=== PATIENT | female | born 1955 | race Caucasian/White ===

== ENCOUNTER 2023-03-19 17:30 | Emergency (ER) | payer MEDICARE, SELFPAY ==
--- OUTSIDE RECORDS SUMMARY | 2023-03-19 17:32 | XMS_ITS | Continuity of Care Document ---
Author Name Unknown Organization [facility] Address [address] [address] [place] [address] Phone Care Team Providers Care Cyber Systems Engineer Name Role Phone Lizy Salomon CRNA Unavailable Unavailable Allergies, Adverse Reactions, Alerts Substance Reaction Status Criticality bacitracin swollen red sores Active No Informa tion Medications Medication Instructions Dosage Effective Dates (start - stop) Status Comments metformin 500 mg tablet take 1 tablet by oral route 2 times every day with morning and evening meals 500 MG - Active lisinopril 10 mg tablet take 1 tablet by oral route every day 10 MG - Active escitalopram 10 mg tablet take 1 tablet by oral route every day 10 MG - Active bupropion HCl SR 150 mg tablet,12 hr sustained-release take 1 tablet by oral route every day 150 MG - Active loratadine 10 mg tablet take 1 tablet by oral route every day 10 MG - Active indapamide 2.5 mg tablet take 1 tablet by oral route every day in the morning 2.5 MG - Active atorvastatin 10 mg tablet take 1 tablet by oral route every day 10 MG - Active trazodone 150 mg tablet take 1 Tablet by oral route every day at bedtime 150 MG - Active Aspir-81 81 mg tablet,delayed release take 1 tablet by oral route every day - Active Benadryl Allergy 25 mg tablet take 2 Tablet by oral route every day as needed 50 MG - Active Procedures Procedure Date Colonoscopy Flex; W/remov Les- Level Iv-surg Path Gross/micro 20 Colonoscopy Flex; W/bx 1/mx Level Iv-surg Path Gross/micro Advance Directives Directive Yes / No Effective Date File Name No Information Encounters Encounter Description Practice Location Reason(s) For Visit Diagnoses Date Provider Providers Copied on Encounter [facility], [address] [address], [place], [place], [address], [place] tel:[phone] [facility] No Information 0 Aime Medel. [address] [facility] [address] [facility] [address], [place], [place], [address] , [place]. tel: [phone] Referring Provider: Agueda Caballero, [address], [place], [address] . tel:[phone] [facility], [address] [address], [place], [place], [address], [place] tel:[phone] [facility] Personal history of colonic polypsColorectal polyp detected on colonoscopyDivertic ulosis of colon without diverticulitisEncou nter for screening for malignant neoplasm of colonBenign neoplasm of ascending colonDvrtclos of lg int w/o perforation or abscess w/o bleedingBenign neoplasm of ascending colonPersonal history of colonic polyps 0 Nan Romeo . [address], [place], [place], [address] , [place]. tel: [phone] Referring Provider: Referral Self. [facility], [address] [address], [place], [place], [address], [place] tel:[phone] [facility] No Information 0 Nan Romeo . [address], [place], [place], [address] , [place]. tel: [phone] [facility], [address] [address], [place], [place], [address], [place] tel:[phone] [facility] Benign colon polypDiverticulosis of colon without hemorrhageExternal hemorrhoidsEncounte r for screening for malignant neoplasm of colonBenign neoplasm of transverse colonDvrtclos of lg int w/o perforation or abscess w/o bleedingPolyp of colon Sep-2 7-201 7 Kandiel MD Ahmed. [address] [facility], [place], [place], [address] , [place]. tel:[phone] Referring Provider: Referral Self. Family History Family Member Type Diagnosis Age At Onset Mother Problem (finding) Father Problem (finding) Alive and well Son Problem (finding) Brother Problem (finding) Alive and well Son Problem (finding) Alive and well Daughter Problem (finding) Alive and well Immunizations Vaccine Date Status Comments Influenza administered Note: [facility] bi-d irectional interface ; Source: Other Registry Pneumovax 23 administered Note: [facility] bi-d irectional interface ; Source: Other Registry Influenza administered Note: [facility] bi-d irectional interface ; Source: Other Registry Influenza administered Note: [facility] bi-d irectional interface ; Source: Other Registry zoster vaccine, live administered Note: [facility] bi-directional interface ; Source: Other Registry Influenza administered Note: [facility] bi-d irectional interface ; Source: Other Registry Pneumovax 23 administered Note: [facility] bi-d irectional interface ; Source: Other Registry Influenza administered Note: [facility] bi-d irectional interface ; Source: Other Registry Influenza administered Note: [facility] bi-d irectional interface ; Source: Other Registry tetanus toxoid, reduced diphtheria toxoid, and acellular pertussis vaccine, adsorbed administered Note: [facility] b i-directional interface ; Source: Other Registry Novel [id number], injectable administered Note: [facility] bi-direct ional interface ; Source: Other Registry Influenza, seasonal, injecta ble, preservative free administered Note: [facility] bi-direct ional interface ; Source: Other Registry Influenza, seasonal, injectable administe red Note: [facility] bi- directional interface ; Source: Other Registry Influenza, seasonal, injectable administe red Note: [facility] bi- directional interface ; Source: Other Registry tetanus and diphtheria toxoi ds, adsorbed, preservative free, for adult use (5 Lf of tetanus toxoid and 2 Lf of diphtheria toxoid) administered Note: [facility] bi-direct ional interface ; Source: Other Registry Payers Payer name Insurance type Covered constitution party ID Authorsilvio rosenthal(s) Blue [employer] Medicare Advantage [id number] Social History Type Description Quantity Date Captured Comments Sex Female Smoking Status No Information Chief Complaint And Reason For Visit No Information Reason For Referral Reason For Referral No Information History Of Present Illness Encounter Date Complaint History Of Prese nt Illness No Information Functional Status Date Functional Assessmen t No Information Instructions Date Instruction Additional Infor mation Colon Cancer Prevention Related to Colorectal polyp detected on colonoscopy High Fiber Diet Related to Color ectal polyp detected on colonoscopy Diverticulosis/Diverticulitis Re lated to Colorectal polyp detected on colonoscopy Colon Polyps Related to Color ectal polyp detected on colonoscopy Diverticulosis/Diverticulitis Re lated to Benign colon polyp Colon Polyps Related to Benig n colon polyp Colon Cancer Prevention Related to Benign colon polyp High Fiber Diet Related to Benig n colon polyp Assessments Type Assessment Date No Information Patient Care Teams Name Effective Dates (start - stop) Status Members No Information
[2023-03-19 17:37] VITALS: BP 117/77; PULSE 83; RESP 20; TEMP 36.7; O2SAT 99; BMI 36.0
--- OUTSIDE RECORDS SUMMARY | 2023-03-19 20:29 | XMS_ITS | Continuity of Care Document ---
Author Name Unknown Organization [facility] Address [address] [address] [place] [address] Phone Care Team Providers Care Personnel Manager Name Role Phone Lizy Salomon CRNA Unavailable [...] Diagnoses Date Provider Providers Copied on Encounter [facility], [address] [address], [place], [place], [address], [place] tel:[phone] [facility] No Information 0 Aime Medel. [address] [facility] [address], [place], [place], [address] , [place]. tel: [phone] Referring Provider: Agueda Caballero, [address] [facility] [address], [place], [address] . tel:[phone] [facility], [address] [address], [place], [place], [address], [place] tel:[phone] [facility] Personal history of colonic polypsColorectal polyp detected on colonoscopyDivertic ulosis of colon without diverticulitisEncou nter for screening for malignant neoplasm of colonBenign neoplasm of ascending colonDvrtclos of lg int w/o perforation or abscess w/o bleedingBenign neoplasm of ascending colonPersonal history of colonic polyps 0 Nan Romeo . [address] [facility] [address], [place], [place], [address] , [place]. tel: [phone] Referring Provider: Referral Self. [facility], [address] [address], [place], [place], [address], [place] tel:[phone] [facility] No Information 0 Nan Romeo . [address] [facility] [address], [place], [place], [address] , [place]. tel: [phone] [facility], [address] [address], [place], [place], [address], [place] tel:[phone] [facility] Benign colon polypDiverticulosis of colon without hemorrhageExternal hemorrhoidsEncounte r for screening for malignant neoplasm of colonBenign neoplasm of transverse colonDvrtclos of lg int w/o perforation or abscess w/o bleedingPolyp of colon Sep-2 7-201 7 Kandiel MD Ahmed. [address] [facility], [place], [place], [address] , [place]. tel:[phone] Referring Provider: Referral Self. Family History Family [...] i-directional interface ; Source: Other Registry Novel [id number], injectable administered Note: [facility] bi-direct ional interface [...] ID Authorsilvio rosenthal(s) [employer] Medicare Advantage [id number] Social History Type Description Quantity Date [...]
--- OUTSIDE RECORDS SUMMARY | 2023-03-19 20:29 | XMS_ITS | Patient Health Record ---
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 Role Phone Barrera Roberts Primary Care Provider UnavailElvin Sim Unavailable [phone] Kristyn SEGURA [facility] Unavailable Unavailable Barrera Villagomez Unavailable [phone] Colby Moss Unavailable [phone] Zeyad Banegas Unavailable [phone] ALLERGIES Allergen (clinical drug ingredient) Drug/Non Drug Allergy documented on EMR Reaction Allergy Type Onset Date Status Neosporin rash Drug Allergy Active bacitracin Bacitracin rash Drug Allergy Activ e REASON FOR REFERRAL Reason 1st RYAN C2-C4 MBBs Diagnosis 1 Spondylosis without myelopathy or radiculopathy, cervical region (M47.812) Referral Organization [facility] Referring Provider First Name Elvin Referring Provider Last Name Dominick Referring Provider Speciality Pain Medic ine Referred Organization [facility] Referred Provider Elvin Tan Referred Address [address] [place] [address] [address],[place], [place],[address], Referred Provider Specialty Pain Medicin e Referral Priority Routine Reason RYAN C4-C5 TFE Diagnosis 1 Spondylosis without myelopathy or radiculopathy, cervical region (M47.812) Referral Organization [facility] Referring Provider First Name Elvin Referring Provider Last Name Dominick Referring Provider Speciality Pain Medic ine Referred Organization [facility] Referred Provider Elvin Tan Referred Address [address] [place] [address] [address],[place], [place],[address],[place] Referred Provider Specialty Pain Medicin e Referral Priority Routine MEDICATIONS Medication SIG (Take, Route, Fr equency, Duration) Notes Start Date End Date Status DULoxetine HCl 60 MG 1 capsule Orally On ce a day for 30 days Active Jardiance 25 MG 1 tablet Orally Once a day Active Pregabalin 150 MG 1 capsule Orally Twi ce a day for 30 days 02/21/2023 Active tiZANidine HCl 4 MG 1 tablet as needed O rally at bedtime for 30 days Active Aspirin 81 81 MG 1 tablet Orally Once a day Active traZODone HCl 50 MG 3 tablets Orally Once a day Active SOCIAL HISTORY Tobacco Use: Social History Observation Description Date Details (start date - stop date) Never Smoker NA - NA Sex Assigned At : Social History Observation Description Sex Assigned At Unknown Tobacco Use/Smoking: Question Answer Notes Are you a nonsmoker Alcohol Screen Question Answer Notes Did you have a drink containing alcohol in the p ast year? No Points 0 Interpretation Negative PROBLEMS Problem Type ICD Code Onset Dates Problem Status W/U Status Risk SNOMED Code Notes Problem Other chronic pain (G89.29) Active confirmed Chronic pain (48937756) Problem Spondylosis without myelopathy or radiculopathy, cervical region (M47.812) Active confirmed Cervical spondylosis without myelopathy (413587893) Problem Cervicalgia (M54.2) Active confirmed Cervicalgia (42819858) Problem Occipital neuralgia (M54.81) Active confirmed Occipital neuralgia (36667018) Problem Cervical radiculopathy (M54.12) Active confirmed Cervical radiculopathy (23448235) VITAL SIGNS Blood pressure diastolic 72 mm Hg 02/21/2023 Height 67 in 02/21/2023 Blood pressure systolic 120 mm Hg 02/21/2023 Weight 190 lbs 02/21/2023 BMI 29.75 kg/m2 02/21/2023 PROCEDURES Procedure Date Ordered Date Performed Result Body Sit e Intervention: 12/13/2022 12/16/2022 sched 12/27 Intervention: 12/29/2022 01/05/2023 sched 01/26 Intervention: 02/21/2023 03/03/2023 sched 03/14 Encounters Encounter Location Date Provider Diagnosis [facility] [address] [place] [address] [address] [place] [id number] 11/08/2022 Barrera Villagomez [facility] [address] [place] [address] [address] [place] [id number] 12/26/2022 Elvin Tan [address] [facility] [address] [facility] [address] [place] [phone] 01/02/2023 Elvin Tan [facility] [address] [place] [id number] 01/25/2023 Elvin Tan [facility] [address] [place] [id number] 01/31/2023 Elvin Tan [facility] [address] [place] [id number] 02/07/2023 Colby Bolick Other chronic pain G89.29 [facility] [address] [place] [address] [address] [place] [id number] 02/24/2023 Elvin Tan [facility] [address] [place] [id number] 03/13/2023 Elvin Tan [facility] [address] [place] [address] [address] [place] [id number] 03/14/2023 Elvin Tan [address] [facility] [address] [place] [id number] 11/22/2022 Elvin Tan Other chronic pain G89.29 and Cervicalgia M54.2 [address] [facility] [address] [place] [address] 12/13/2022 Colby Bolick Cervicalgia M54.2 ; Spondylosis without myelopathy or radiculopathy, cervical region M47.812 and Other chronic pain G89.29 [address] [facility] [address] [place] [id number] 01/10/2023 Colby Bolick [address] [facility] [address] [place] [id number] 01/25/2023 Colby Bolick Spondylosis without myelopathy or radiculopathy, cervical region M47.812 ; Cervicalgia M54.2 ; Other chronic pain G89.29 and Occipital neuralgia M54.81 [address] [facility] [address] [place] [id number] 02/21/2023 Colby Bolick Spondylosis without myelopathy or radiculopathy, cervical region M47.812 ; Cervicalgia M54.2 ; Occipital neuralgia M54.81 and Other chronic pain G89.29 [address] [facility] [address] [place] [id number] 12/29/2022 Zeyad Banegas Spondylosis without myelopathy or radiculopathy, cervical region M47.812 ; Cervicalgia M54.2 ; Other chronic pain G89.29 and Occipital neuralgia M54.81 [address] [facility] [address] [place] [id number] 02/02/2023 Elvin Tan Occipital neuralgia M54.81 [address] [facility] [address] [place] [id number] 03/14/2023 Elvin Tan Cervical radiculopathy M54.12 [address] [facility] [address] [place] [id number] 01/26/2023 Elvin Tan [address] [facility] [address] [place] [id number] 12/27/2022 Elvin Tan Spondylosis without myelopathy or radiculopathy, cervical region M47.812 ASSESSMENTS Encounter Date Diagnosis Assessment Notes Treatment Notes Treatment Clinical Notes 12/13/2022 Spondylosis without myelopathy or radiculopathy, cervical region (ICD-10 - M47.812) 12/13/2022 Cervicalgia (ICD-10 - M54.2) 01/25/2023 Spondylosis without myelopathy or radiculopathy, cervical region (ICD-10 - M47.812) 02/02/2023 Occipital neuralgia (ICD-10 - M54.81) 02/07/2023 Other chronic pain (ICD-10 - G89.29) 02/21/2023 Spondylosis without myelopathy or radiculopathy, cervical region (ICD-10 - M47.812) 02/21/2023 Cervicalgia (ICD-10 - M54.2) 03/14/2023 Cervical radiculopathy (ICD-10 - M54.12) 12/29/2022 Spondylosis without myelopathy or radiculopathy, cervical region (ICD-10 - M47.812) 12/27/2022 Spondylosis without myelopathy or radiculopathy, cervical region (ICD-10 - M47.812) 11/22/2022 Other chronic pain (ICD-10 - G89.29) Larissa presents to the clinic for an evaluation regarding her chronic neck, back, bilateral upper extremity, and bilateral lower extremity pain. I have reviewed her symptoms and current medications. I checked the [facility] database and I did not find any inconsistencies. She signed ROIs to [facility], and Jorge L to obtain her previous surgical notes, imaging, and visit notes. I will consider physical therapy or injections pending review of her outside records. I will continue with a treatment plan consisting of conservative therapy. Regarding medications, I have increased her Lyrica to 150mg BID for additional neuropathic pain relief. This treatment plan was reviewed with Larissa, and she was agreeable. I have started her on tizanidine 4mg QHS for overnight pain relief. She will return in 2-3 weeks for further evaluation or sooner if needed. I will continue to monitor her progress, adjusting her treatment plan as necessary. Discharge instructions reviewed verbally. Discussed the risks/benefits of prescribed medication. The patient was instructed to return to the office as scheduled and call with any questions, problems or concerns. 11/22/2022 Cervicalgia (ICD-10 - M54.2) 12/13/2022 Other chronic pain (ICD-10 - G89.29) Larissa presents to the clinic for an evaluation regarding her chronic neck, back, bilateral upper extremity, and bilateral lower extremity pain. I have reviewed her symptoms and current medications as well as her available imaging. I checked the [facility] database and I did not find any inconsistencies. I will continue with a treatment plan consisting of conservative therapy. I believe she is a good candidate for a bilateral C2-4 MBB/RFA work up. This procedure was explained to Larissa and she expressed interest in proceeding. Regarding medications, I will start her on Duloxetine as recommended by her primary provider. I will also refill her Lyrica and Tizanidine as these continue to provide moderate relief without side effects. This treatment plan was reviewed with Larissa and she was agreeable. She will return in 1 month for further evaluation or sooner if needed. I will continue to monitor her progress, adjusting her treatment plan as necessary. Plan:1. Reviewed available imaging2. Order bilateral C2-4 MBBs3. Start Duloxetine 30mg QD4. Refill Lyrica 150mg BID5. Refill Tizanidine 4mg QHS6. Follow up in 1 month Discharge instructions reviewed verbally. Discussed the risks/benefits of prescribed medication. The patient was instructed to return to the office as scheduled and call with any questions, problems or concerns. 12/29/2022 Cervicalgia (ICD-10 - M54.2) 02/21/2023 Occipital neuralgia (ICD-10 - M54.81) 01/25/2023 Cervicalgia (ICD-10 - M54.2) 01/25/2023 Other chronic pain (ICD-10 - G89.29) 02/21/2023 Other chronic pain (ICD-10 - G89.29) Larissa returns to clinic today for a follow up evaluation regarding her chronic neck, back, bilateral upper extremity, and bilateral lower extremity pain. I have reviewed the [facility] database and did not find any inconsistencies. I reviewed her symptoms and current medications. I will continue with a treatment plan consisting of conservative therapy at this time. Regarding medications, I will refill her Lyrica and Duloxetine as they continue to provide moderate relief without side effects. I will consider medical cannabis as a potential future treatment option. I have provided her with a MMCP info packet and she will take it home for consideration. For further treatment, I believe she is a good candidate for a C4-5 SUZI (level to be confirmed on day of procedure). This procedure was explained to her and she expressed hesitant interest in proceeding. This treatment plan was reviewed with Larissa, and she was agreeable. I will continue to monitor her progress and she will follow up as needed Plan:1. Refill Lyrica and Duloxetine2. Consider MMCP, provided info packet3. Order C4-5 SUZI, level to be confirmed on day of procedure4. Follow up as needed Discharge instructions reviewed verbally. Discussed the risks/benefits of prescribed medication. The patient was instructed to return to the office as scheduled and call with any questions, problems or concerns. 12/29/2022 Other chronic pain (ICD-10 - G89.29) Larissa presents to the clinic for an evaluation regarding her chronic neck, back, bilateral upper extremity, and bilateral lower extremity pain. I have reviewed her symptoms and current medications as well as her available imaging. I checked the [facility] database and I did not find any inconsistencies. I will continue with a treatment plan consisting of conservative therapy. After discussion with Dr. Tan, I recommended and will order bilateral occipital nerve blocks to address her painful symptoms before considering SUZI due to her history of cervical abscess and multilevel laminectomies. Regarding medications, I will increase her Duloxetine to 60mg QD for additional relief. I will also consider LDN as a potential option. This treatment plan was reviewed with Larissa and she was agreeable. She will return in 1 month for further evaluation or sooner if needed. I will continue to monitor her progress, adjusting her treatment plan as necessary. Plan:1. Reviewed available imaging2. Order bilateral ONBs. 3. Consider CESI4. Increase Duloxetine to 60mg QD5. Consider LDN6. Follow up in 1 month Discharge instructions reviewed verbally. Discussed the risks/benefits of prescribed medication. The patient was instructed to return to the office as scheduled and call with any questions, problems or concerns. 12/29/2022 Occipital neuralgia (ICD-10 - M54.81) 01/25/2023 Occipital neuralgia (ICD-10 - M54.81) 01/25/2023 Other Lisa Martino , am serving as a scribe to document services personally performed by Colby Moss PA-C, based upon my observations and the provider's statements to me. All documentation has been reviewed by the aforementioned MELISSA as well as Barrera Villagomez MD, prior to being entered into the official medical record. I, Barrera Villagomez MD attest that the above named individual is acting in scribe capacity, has observed Colby Moss's performance of the services and has documented them in accordance with her direction. The documentation recorded by the scribe accurately reflects the service Colby Moss PA-C, personally performed and the decisions made by her. 11/22/2022 Other Lisa Martino , am serving as a scribe to document services personally performed by Colby Moss PA-C, based upon my observations and the provider's statements to me. All documentation has been reviewed by the aforementioned MELISSA as well as Elvin Tan MD, prior to being entered into the official medical record. I, Elvin Tan MD attest that the above named individual is acting in scribe capacity, has observed Colby Isa's performance of the services and has documented them in accordance with her direction. The documentation recorded by the scribe accurately reflects the service Colby Moss PA-C, personally performed and the decisions made by her. Thank you very much Dr. Simons for kindly referring Larissa to our practice. It is a pleasure to participate in Larissa's care. Please feel free to contact me with any questions or concerns. 12/13/2022 Other Monroe Martino , am serving as a scribe to document services personally performed by Colby Moss PA-C, based upon my observations and the provider's statements to me. All documentation has been reviewed by the aforementioned PADuc. Gunner, Colby Moss PA-C, attest that the above named individual is acting in scribe capacity, has observed my performance of the services and has documented them in accordance with my direction. The documentation recorded by the scribe accurately reflects the service I personally performed and the decisions made during the clinic visit. 12/29/2022 Other Monroe Martino , am serving as a scribe to document services personally performed by Zeyad Banegas PA-C, based upon my observations and the provider's statements to me. All documentation has been reviewed by the aforementioned PADuc. Zeyad Martino PA-C, attest that the above named individual is acting in scribe capacity, has observed my performance of the services and has documented them in accordance with my direction. The documentation recorded by the scribe accurately reflects the service I personally performed and the decisions made during the clinic visit. 02/21/2023 Other Monroe Martino , am serving as a scribe to document services personally performed by Colby Moss PA-C, based upon my observations and the provider's statements to me. All documentation has been reviewed by the aforementioned MELISSA. Colby Martino PA-C, attest that the above named individual is acting in scribe capacity, has observed my performance of the services and has documented them in accordance with my direction. The documentation recorded by the scribe accurately reflects the service I personally performed and the decisions made during the clinic visit. PLAN OF TREATMENT Next Appt Details Provider Name:Colby Moss, 03/28/2023 09:45:00 AM, [address], [address], [place], [address], Insurance Providers Payer Name Payer Address Payer Phone Subscriber Number Group Number Insured Name Patient Relationship to Insured Coverage Start Date Coverage End Date [facility] Advantage [address] [address] [place] [address] [id number] Larissa Dominguez Self - patient is the insured 9 MEDICAL (GENERAL) HISTORY Medical History History ICD Code Frontotemporal Dementia Anxiety Arthritis Depression Diabetes Fibromyalgia Frequent infections Headaches Surgical History Surgery Date(Month/Year) Abscess removal 01/2022 right foot surgery 02/2021 left ankle replacement Hospitalization History Reason Date(Month/Year) Staph infection and abscess in cervical spine 01/2022
--- OUTSIDE RECORDS SUMMARY | 2023-03-19 20:30 | XMS_ITS | Continuity of Care Document ---
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 [address] [facility] [address], [place], [place], [id number] , [place]. tel: [phone] Referring Provider: Agueda Caballero, [address] [facility] [address], [place], [address] . tel:[phone] [facility], [address] [address], [place], [place], [address], [place] tel:[phone] [facility] Personal history of colonic polypsColorectal polyp detected on colonoscopyDivertic ulosis of colon without diverticulitisEncou nter for screening for malignant neoplasm of colonBenign neoplasm of ascending colonDvrtclos of lg int w/o perforation or abscess w/o bleedingBenign neoplasm of ascending colonPersonal history of colonic polyps 0 Nan Romeo . [address] [facility] [address], [place], [place], [id number] , [place]. tel: [phone] Referring Provider: Referral Self. [facility], [address] [address], [place], [place], [address], [place] tel:[phone] [facility] No Information 0 Nan Romeo . [address] [facility] [address], [place], [place], [id number] , [place]. tel: [phone] [facility], [address] [address], [place], [place], [address], [place] tel:[phone] [facility] Benign colon polypDiverticulosis of colon without hemorrhageExternal hemorrhoidsEncounte r for screening for malignant neoplasm of colonBenign neoplasm of transverse colonDvrtclos of lg int w/o perforation or abscess w/o bleedingPolyp of colon Sep-2 7-201 7 Kandiel MD Ahmed. [address] [facility], [place], [place], [id number] , [place]. tel:[phone] Referring Provider: Referral Self. Family History Family [...] i-directional interface ; Source: Other Registry Novel [id number], injectable administered Note: [facility] bi-direct ional interface [...] Registry Payers Payer name Insurance type Covered libertarian ID Authorsilvio rosenthal(s) Blue Cross Medicare Advantage [id number] Social History Type Description Quantity Date [...]
--- OUTSIDE RECORDS SUMMARY | 2023-03-19 22:54 | XMS_ITS | Continuity of Care Document ---
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 [address] [facility] [address], [address], [place], [place], [id number] , [place]. tel: [phone] Referring Provider: Agueda Caballero, [address] [facility] [address], [place], [address] . tel:[phone] [facility], [address] [address], [place], [place], [address], [place] tel:[phone] [facility] Personal history of colonic polypsColorectal polyp detected on colonoscopyDivertic ulosis of colon without diverticulitisEncou nter for screening for malignant neoplasm of colonBenign neoplasm of ascending colonDvrtclos of lg int w/o perforation or abscess w/o bleedingBenign neoplasm of ascending colonPersonal history of colonic polyps 0 Nan Romeo . [address] [facility] [address], [place], [place], [address] , [place]. tel: [phone] Referring Provider: Referral Self. [facility], [address] [address], [place], [place], [address], [place] tel:[phone] [facility] No Information 0 Nan Romeo . [address] [facility] [address], [address], [place], [place], [address] , [place]. tel: [phone] [facility], [address] [address], [place], [place], [address], [place] tel:[phone] [facility] Benign colon polypDiverticulosis of colon without hemorrhageExternal hemorrhoidsEncounte r for screening for malignant neoplasm of colonBenign neoplasm of transverse colonDvrtclos of lg int w/o perforation or abscess w/o bleedingPolyp of colon Sep-2 7-201 7 Kandiel MD Ahmed. [address] [facility], [address], [place], [place], [address] , [place]. tel:[phone] Referring Provider: Referral Self. Family History Family [...] i-directional interface ; Source: Other Registry Novel [id number], injectable administered Note: [facility] bi-direct ional interface [...] Registry Payers Payer name Insurance type Covered green party ID Authorsilvio rosenthal(s) [employer] Medicare Advantage [id number] Social History Type Description Quantity Date [...]
--- NOTE | 2023-03-20 01:53 | ED_ITS ---
HPI - General Adult General Chief complaint: Ear/Nose/Throat Problem Stated complaint: Excessive bloody nose Time Seen by Provider: 03/19/23 19:13 History of Present Illness HPI narrative: This is a pleasant 68-year-old female with a history of dementia who is brought to the ER today by her with concern for epistaxis. She is not anticoagulated. She is not have any recent respiratory infection, sinus infection. No recent injury. A couple of days ago she had a nose bleed. It sounds like this was bleeding off and on throughout the day. It became a nuisance but was controllable when she put Kleenex up her nostrils. felt like she was bleeding more from the right nostril been from the left but she was bleeding bilaterally. She had done well for a couple of days. Today she had a recurrent nosebleed. Her has been says that for a while it was ?gushing? out of her nose. Again it was coming more from the right than on the left. They were able to stop it by packing her nostrils with cotton. He did apply little bit of pressure using 1 finger on the side of her nose. She is not lightheaded or dizzy. No fainting spells. She is not anticoagulated. Related Data Allergies Allergy/AdvReac Type Severity Reaction Status Date / Time bacitracin Allergy Severe Rash Verified 03/19/23 17:41 [From Neosporin ([id number])] neomycin Allergy Severe Rash Verified 03/19/23 17:41 [From Neosporin ([id number])] polymyxin B Allergy Severe Rash Verified 03/19/23 17:41 [From Neosporin ([id number])] Review of Systems Narrative: Negative PFSH PFSH Social History Second hand tobacco smoke exposure: No Exam Narrative: Exam Narrative: Constitutional: Appears well-developed and well-nourished. Alert. Conversant but has mild dementia. Cooperative.. Non toxic. Sitting up in her wheelchair. HENT: Head: Atraumatic. Nose: Nose normal. Mouth/Throat: Oral mucosa is clear and moist. no trismus. Pharynx normal. Tonsils symmetric. No tonsillar enlargement, erythema, or exudate. Nose: Initially she has earned nostrils packed bilaterally with tissues. I removed these for exam. No active bleeding. There is some signs of drying blood in both nostrils. I believe she has a septal perforation. Difficult to evaluate due to the amount of blood. We administered Afrin. Had the patient hold direct pressure for 10 minutes. No recurrent bleeding. We applied 1% lidocaine with epi on cotton balls placed bilaterally. After these removed a substantial amount of the previous blood was cleared away. I was able to get a better view. She does have an septal perforation. There appears to be an area of recent bleeding on the septum on the inferior border of the tissue of the septal perforation. This was not actively bleeding but given multiple recurrences throughout the day today, we did cauterize using silver nitrate. Patient tolerated this procedure well. She was monitored. No further recurrent bleeding. Eyes: Conjunctivae normal. EOM normal. Pupils equal, round, and reactive to light. No scleral icterus. Neck: Normal range of motion. Neck supple. No tracheal deviation present. Cardiovascular: Normal rate, regular rhythm. No gallop. No friction rub. No murmur heard. Symmetric radial artery pulses Pulmonary/Chest: Effort normal. No stridor. No respiratory distress. No wheezes. No rales. No rhonchi . No tenderness. Abdominal: Soft. Bowel sounds normal. No distension. No mass. No tenderness. No rebound. No guarding. Musculoskeletal: RUE: Normal range of motion. No tenderness. No deformity LUE: Normal range of motion. No tenderness. No deformity RLE: Normal range of motion. No edema. No tenderness. No deformity LLE: Normal range of motion. No edema. No tenderness. No deformity Neurological: Alert and oriented to person, place, but not date. Baseline for dementia. Normal strength. CN II-VII intact. No sensory deficit. GCS eye subscore is 4. GCS verbal subscore is 5. GCS motor subscore is 6. Normal coordination Skin: Skin is warm and dry. No rash noted. No pallor. Normal capillary refill. Psychiatric: Normal mood. Normal affect. Const: Vital Signs, click to edit/add: Vital Signs - 24 hr 03/19/23 17:37 Temperature 98.0 F Pulse Rate [Right Pulse Oximeter] 83 Respiratory Rate 20 Blood Pressure [Ri ght Upper Arm] 117/77 Pulse Oximetry 99 Oxygen Delivery Me thod Room Air Course Vital Signs Vital signs: Initial Vital Signs Temperature 98.0 F 03/19/23 17:37 Temperature Source Temporal Artery Scan 03/19/23 17:37 Pulse Rate 83 03/19/23 17:37 Pulse Rhythm Regular 03/19/23 17:37 Pulse Strength 3+ Normal 03/19/23 17:37 Respiratory Rate 20 03/19/23 17:37 Blood Pressure 117/77 03/19/23 17:37 Blood Pressure Mean 90 03/19/23 17:37 Blood Pressure Position Sitting 03/19/23 17:37 Pulse Oximetry 99 03/19/23 17:37 Oxygen Delivery Method Room Air 03/19/23 17:37 Vital Signs Temperature 98.0 F 03/19/23 17:37 Pulse Rate 83 03/19/23 17:37 Respiratory Rate 20 03/19/23 17:37 Blood Pressure 117/77 03/19/23 17:37 Pulse Oximetry 99 03/19/23 17:37 Oxygen Delivery Method Room Air 03/19/23 17:37 Temperature 98.0 F 03/19/23 17:37 Pulse Rate 83 03/19/23 17:37 Respiratory Rate 20 03/19/23 17:37 Blood Pressure 117/77 03/19/23 17:37 Pulse Oximetry 99 03/19/23 17:37 Oxygen Delivery Method Room Air 03/19/23 17:37 Medical Decision Making MDM Narrative Medical decision making narrative: 68-year-old female who is not anticoagulated presents to the ER today for epistaxis, with bleeding off and on from her nostrils for the past couple of days. When she arrived here in the ER she was not having a significant blee ding. She did have very small volume nuisance stripping once but this was controlled by direct pressure. My evaluation here in the ER shows that she has a septal perforation. I believe she has the site of bleeding on the septum on the inferior border of the perforation. Were able to cauterize the bleeding. No recurrent bleeding occurred after that. Patient will need outpatient follow- up with ENT for re-evaluation. The septal perforation was not previously known to the patient and her . No other recent trauma. She is not anticoagulated. No other signs of active infection. Since bleeding is now controlled would hold off on more invasive measures such as nasal packing unless bleeding becomes recurrent. Precautions for return to the are reviewed. Discharge Plan Discharge Clinical Impression: Epistaxis, Nasal septal perforation Patient Disposition: Home, Self-Care Instructions: Nosebleed (ED) Additional Instructions: Please call the ENT Clinic tomorrow at [phone] (this is the [facility]). Ask them to schedule an appointment with the ENT doctor, Dr Mesa to recheck your nose. Come back to the ER right away if you experience recurrent nosebleed that is uncontrolled after 10 minutes of direct pressure , heavy bleeding, or lightheadedness or fainting or other concerning symptoms. Activity Level: No Restrictions Discharge Diet: Regular Follow Up/Referrals: Provider,Not a Local [Primary Care Provider] - Stand Alone Forms: AccessPay Info Instructions
== END 2023-03-19 20:55 | disposition home or self-care (01) ==
PROVIDERS: Emergency Provider Emergency Medicine
DX: R04.0 Epistaxis (principal)
CPT/HCPCS: 30901; 99283